=== PATIENT | female | born 1980 ===

== ENCOUNTER 2021-02-07 13:56 | Outpatient (CLI) | payer OTHER | END 2021-02-07 14:05 | disposition home or self-care (01) | LOC: TOM 13:56 | PROVIDERS: ATTEND General Practice | DX: G93.89 Other specified disorders of brain (principal); Z91.81 History of falling; S09.90XA Unspecified injury of head, initial encounter ==

== ENCOUNTER 2021-12-05 10:07 | Outpatient (CLI) | payer OTHER | END 2021-12-05 10:15 | disposition home or self-care (01) | LOC: RAD 10:07 | DX: I10 Essential (primary) hypertension (principal); R06.00 Dyspnea, unspecified ==